=== PATIENT | female | born 1990 | race Caucasian/White ===

== ENCOUNTER 2017-09-04 10:40 | Inpatient (IN) | payer OTHER ==
[2017-09-04] MEDS ORDERED: Nalbuphine 20 MG/1 ML Amp IVPUSH PRN (20:12)
[2017-09-04] MEDS ORDERED: Sodium Chloride 0.9% 10 ML Syringe FLUSH PRN (20:12)
[2017-09-04] MEDS ORDERED: Ampicillin 2 GM in Sodium Chloride 0.9% 100 ML IV ONE (20:12)
[2017-09-04] MEDS: Misoprostol 25 MCG (1/4 of 100 MCG) Tab VAG SCH (21:01)
[2017-09-04] MEDS: Lactated Ringers 1,000 ML IV SCH (21:15)
[2017-09-05] MEDS: Misoprostol 25 MCG (1/4 of 100 MCG) Tab VAG SCH ×2 (00:18→02:50)
[2017-09-05] MEDS: Ampicillin 1 GM in Sodium Chloride 0.9% 100 ML IV SCH ×3 (01:08→08:44)
[2017-09-05] MEDS ORDERED: Oxytocin/Lactated Ringers 10 UNIT/1,000 ML BAG IV ONE (02:12)
[2017-09-05] MEDS: Lactated Ringers 1,000 ML IV SCH ×3 (02:58→06:32)
[2017-09-05] MEDS ORDERED: diphenhydrAMINE 50 MG/ML SDV IVPUSH PRN (04:34)
[2017-09-05] MEDS ORDERED: ePHEDrine 50 MG/ML SDV IVPUSH PRN (04:34)
[2017-09-05] MEDS ORDERED: fentaNYL 100 MCG/2 ML SDV EPIDUR PRN (04:34)
[2017-09-05] MEDS ORDERED: Ondansetron 4 MG/2 ML SDV IVPUSH PRN (04:34)
[2017-09-05] MEDS ORDERED: Bupivacaine/fentaNYL/NS 100 ML Bag EPIDUR SCH (04:45)
--- NOTE | 2017-09-05 05:30 | PCM.PREANE ---
Preanesthetic Assessment - Anesthesia/Transfusion/Family Hx Anesthesia History: No Prior Anesthesia Family History of Anesthesia Reaction: No Transfusion History: No Prior Transfusion(s) - Review of Systems General: No Symptoms Pulmonary: No Symptoms Cardiovascular: No Symptoms Gastrointestinal: No Symptoms Neurological: No Symptoms Other: Reports: None - Physical Assessment Pulse: 62 O2 Sat by Pulse Oximetry: 99 Respiratory Rate: 16 Blood Pressure: 121/71 Temperature: 36.8 C Height: 1.63 m Weight: 83.461 kg ASA Class: 2 Mental Status: Alert & Oriented x3 Airway Class: Mallampati = 2 Dentition: Reports: Normal Dentition Thyro-Mental Finger Breadths: 3 Mouth Opening Finger Breadths: 3 ROM/Head Extension: Full Lungs: Clear to Auscultation, Normal Respiratory Effort Cardiovascular: Regular Rate, Regular Rhythm - Lab Values: Laboratory Last Values WBC 9.59 K/mm3 (3.98-10.04) 09/04/17 21:00 RBC 3.97 M/mm3 (3.98-5.22) L 09/04/17 21:00 Hgb 12.6 gm/L (11.2-15.7) 09/04/17 21:00 Hct 35.6 % (34.1-44.9) 09/04/17 21:00 MCV 89.7 fl (79.4-94.8) 09/04/17 21:00 MCH 31.7 pg (25.6-32.2) 09/04/17 21:00 MCHC 35.4 g/dl (32.2-35.5) 09/04/17 21:00 RDW Std Deviation 40.8 fL (36.4-46.3) 09/04/17 21:00 Plt Count 291 K/mm3 (182-369) 09/04/17 21:00 MPV 11.0 fl (9.4-12.3) 09/04/17 21:00 Blood Type B POSITIVE 09/04/17 21:00 Gel Antibody Screen Negative 09/04/17 21:00 - Allergies Allergies/Adverse Reactions: Allergies Allergy/AdvReac Type Severity Reaction Status Date / Time No Known Allergies Allergy Verified 09/04/17 20:27 - Acknowledgements Anesthesia Type Planned: Epidural Pt an Appropriate Candidate for the Planned Anesthesia: Yes Alternatives and Risks of Anesthesia Discussed w Pt/Guardian: Yes Pt/Guardian Understands and Agrees with Anesthesia Plan: Yes PreAnesthesia Questionnaire - Past Health History Medical/Surgical History: Denies 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: - SUBSTANCE USE Smoking Status *Q: Never Smoker Tobacco Use Within Last Twelve Months: No Second Hand Smoke Exposure: No Recreational Drug Use History: No - CURRENT (IN HOUSE) MEDS Current Meds: Current Medications Diphenhydramine HCl (Benadryl) 25 mg IVPUSH Q6H PRN PRN Reason: Pruritis Ephedrine Sulfate (Ephedrine Sulfate) 5 mg IVPUSH ASDIRECTED PRN PRN Reason: Hypotension Fentanyl (Sublimaze) 100 mcg EPIDUR ONETIME PRN PRN Reason: Pain Last Admin: 09/05/17 05:08 Dose: 100 mcg Fentanyl/Bupivacaine HCl (Fentanyl/Bupivacaine/Ns 2 Mcg-0.125% 100 Ml) 100 ml EPIDUR ASDIRECTED SONA Last Admin: 09/05/17 05:09 Dose: 100 ml Ampicillin Sodium 1 gm/ Sodium (Chloride) 100 mls @ 200 mls/hr IV Q4H SONA Last Admin: 09/05/17 01:08 Dose: 200 mls/hr Lactated Ringer's (Ringers, Lactated) 1,000 mls @ 100 mls/hr IV ASDIRECTED SONA Last Admin: 09/05/17 02:58 Dose: 100 mls/hr Oxytocin 10 unit/ Lactated (Ringer's) 1,001 mls @ 12.01 mls/hr IV TITRATE SONA; 2 MUNITS/MIN PRN Reason: Protocol Oxytocin 10 unit/ Lactated (Ringer's) 1,001 mls @ 500 mls/hr IV .ONETIME SONA PRN Reason: Protocol Nalbuphine HCl (Nubain) 10 mg IVPUSH Q2H PRN PRN Reason: Pain (moderate 4-6) Ondansetron HCl (Zofran) 4 mg IVPUSH ONETIME PRN PRN Reason: Nausea/Vomiting Sodium Chloride (Saline Flush) 10 ml FLUSH ASDIRECTED PRN PRN Reason: Keep Vein Open Discontinued Medications Ampicillin Sodium 2 gm/ Sodium (Chloride) 100 mls @ 200 mls/hr IV ONETIME ONE Stop: 09/04/17 20:41 Last Admin: 09/04/17 21:01 Dose: 200 mls/hr Oxytocin/Lactated Ringer's (Pitocin In Lr 10 Units/1,000 Ml) Confirm Administered Dose 10 unit in 1,000 mls @ as directed IV .STK-MED ONE Stop: 09/05/17 02:13 Last Admin: 09/05/17 02:50 Dose: Not Given Misoprostol (Cytotec) 25 mcg VAG Q3HR SONA Stop: 09/05/17 03:01 Last Admin: 09/05/17 02:50 Dose: 25 mcg
--- NOTE | 2017-09-05 07:48 | PCM.LDHP ---
L&D History of Present Illness - General Date of Service: 09/05/17 Admit Problem/Dx: Patient Status Order with Admit Dx/Problem 09/04/17 20:10 Patient Status [ADT] Routine Admission Diagnosis/Problem Admission Diagnosis/Problem Source of Information: Patient History Limitations: Reports: No Limitations - History of Present Illness Introduction:: 27 y/o FCO 08/28/2017 EGA 41w1d mili. GBS positive, Ampicillin started upon arrival to L&D. presented to labor and delivery on Tuesday evening and at approximately 2100 hrs. the first dose of Cytotec 25 g intravaginal followed by subsequent dose 2 additional doses 1 at 0000 hours approximately and the other at 0300 hrs. approximately. Patient having regular contractions and Pitocin not started. Last menstrual period FCO 08/28/17 and first ultrasound on 02/15/17 at 12 weeks and 2 days FCO of 08/28/17 as well. Blood type B-positive antibody screen negative initial hemoglobin and hematocrit on 02/16/1712.7/37.4 platelets 244,000. Pap smear negative rubella titer equivocal (needs measles mumps rubella vaccine ), VDRL nonreactive, hepatitis B surface antigen negative, HIV negative, GC chlamydia negative. On 05/20/2017 hemoglobin hematocrit 12.0/34.7 platelets 239,000. Diabetes screen 109. Group B strep positive on 08/01/17. Patient received TDAP 32 weeks gestation. 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) Social & Family History - Family History Family Medical History: Noncontributory - Tobacco Use Smoking Status *Q: Never Smoker Second Hand Smoke Exposure: No - Caffeine Use Caffeine Use: Reports: None - Recreational Drug Use Recreational Drug Use: No H&P Review of Systems - Review of Systems: Review Of Systems: See Below General: Reports: No Symptoms HEENT: Reports: No Symptoms Pulmonary: Reports: No Symptoms Cardiovascular: Reports: No Symptoms Gastrointestinal: Reports: No Symptoms Genitourinary: Reports: No Symptoms Musculoskeletal: Reports: No Symptoms Skin: Reports: No Symptoms Psychiatric: Reports: No Symptoms Neurological: Reports: No Symptoms Hematologic/Lymphatic: Reports: No Symptoms Immunologic: Reports: No Symptoms L&D Exam - Exam Exam: See Below - Vital Signs Vital Signs: Last Vital Signs Temp 98.2 F 09/05/17 05:30 Pulse 62 09/05/17 05:30 Resp 16 09/05/17 05:30 BP 121/71 09/05/17 05:30 Pulse Ox 99 09/05/17 05:30 Weight: 184 lb - OB Specific Fundal Height In cm: 39 Contraction Duration (sec): 60 Contraction Frequency (min): 2-4 Contraction Intensity: Moderate to Strong Movement: Active Heart Tones: Present Heart Tones per Min: 124 Heart Rate (FHR) Variability: Moderate (6-25 bmp) Presentation: Vertex - Del Cid Score Del Cid Score Cervix Position: Posterior Del Cid Score Consistency: Soft Del Cid Score Effacement: 0-30% Del Cid Score Dilation: Closed Del Cid Score Infant's Station: -2 Del Cid Score Total: 3 - Exam General: Alert, Oriented HEENT: Conjunctiva Clear, Mucosa Moist & [place] Neck: Supple, Trachea Midline Lungs: Clear to Auscultation, Normal Respiratory Effort Cardiovascular: Regular Rate, Regular Rhythm GI/Abdominal Exam: Normal Bowel Sounds, Soft, Non-Tender Genitourinary: Normal external exam, Normal bimanual exam, Normal speculum exam Extremities: Normal Inspection, Normal Range of Motion, Non-Tender, No Pedal Edema, Normal Capillary Refill Skin: Warm, Dry, Intact Neurological: Reflexes Equal Bilateral Psychiatric: Alert, Normal Affect, Normal Mood - Patient Data Lab Results Last 24 hrs: Laboratory Results - last 24 hr 09/04/17 09/04/17 Range/Units 21:00 21:00 WBC 9.59 (3.98-10.04) K/mm3 RBC 3.97 L (3.98-5.22) M/mm3 Hgb 12.6 (11.2-15.7) gm/L Hct 35.6 (34.1-44.9) % MCV 89.7 (79.4-94.8) fl MCH 31.7 (25.6-32.2) pg MCHC 35.4 (32.2-35.5) g/dl RDW Std Deviation 40.8 (36.4-46.3) fL Plt Count 291 (182-369) K/mm3 MPV 11.0 (9.4-12.3) fl Blood Type B POSITIVE Gel Antibody Screen Negative Result Diagrams: 09/04/17 21:00 - Problem List (1) 41 weeks gestation of SNOMED Code(s): 64174098 ICD Code: Z3A.41 - 41 WEEKS GESTATION OF Status: Acute Current Visit: Yes (2) GBS (group B Streptococcus carrier), +RV culture, currently SNOMED Code(s): 7006099770084, 2458757107069 ICD Code: O99.820 - STREPTOCOCCUS B CARRIER STATE COMPLICATING Status: Acute Current Visit: Yes Problem List Initiated/Reviewed/Updated: No Orders Last 24hrs: Active Orders 24 hr Category Date Time Status Patient Status [ADT] Routine ADT 09/04/17 20:10 Active Activity as Tolerated [RC] PFP Care 09/04/17 20:12 Active Communication Order [RC] ASDIRECTED Care 09/04/17 20:12 Active Notify Provider [RC] ASDIRECTED Care 09/05/17 04:34 Active Notify Provider [RC] PFP Care 09/04/17 20:12 Active Notify Provider [RC] PRN Care 09/04/17 20:12 Active Peripheral IV Care [RC] . DIRECTED Care 09/04/17 20:15 Active Vital Signs [RC] PER UNIT ROUTINE Care 09/04/17 20:12 Active Ampicillin 1 gm Med 09/05/17 01:00 Active Sodium Chloride 0.9% [Normal Saline] 100 ml IV Q4H Bupivacaine/fentaNYL/NS [fentaNYL/Bupivacaine/NS 2 MCG- Med 09/05/17 04:45 Active 0.125% 100 ML] 100 ml EPIDUR ASDIRECTED Lactated Ringers [Ringers, Lactated] 1,000 ml Med 09/04/17 20:15 Active IV ASDIRECTED Nalbuphine [Nubain] Med 09/04/17 20:12 Active 10 mg IVPUSH Q2H PRN Ondansetron [Zofran] Med 09/05/17 04:34 Active 4 mg IVPUSH ONETIME PRN Oxytocin [Pitocin] 10 unit Med 09/05/17 01:45 Active Lactated Ringers [Ringers, Lactated] 1,000 ml IV .ONETIME Oxytocin [Pitocin] 10 unit Med 09/05/17 06:00 Active Lactated Ringers [Ringers, Lactated] 1,000 ml IV TITRATE Sodium Chloride 0.9% [Saline Flush] Med 09/04/17 20:12 Active 10 ml FLUSH ASDIRECTED PRN diphenhydrAMINE [Benadryl] Med 09/05/17 04:34 Active 25 mg IVPUSH Q6H PRN ePHEDrine [ePHEDrine Sulfate] Med 09/05/17 04:34 Active 5 mg IVPUSH ASDIRECTED PRN fentaNYL [Sublimaze] Med 09/05/17 04:34 Active 100 mcg EPIDUR ONETIME PRN Electronic Heart Tones Ext w TOCO [WOMSER] Oth 09/04/17 20:12 Ordered Routine Electronic Heart Tones Internal [WOMSER] Per Unit Oth 09/04/17 20:12 Ordered Routine Peripheral IV Insertion Adult [OM.PC] Routine Oth 09/04/17 20:12 Ordered Resuscitation Status Routine Resus Stat 09/04/17 20:12 Ordered Medication Orders Diphenhydramine HCl (Benadryl) 25 mg IVPUSH Q6H PRN PRN Reason: Pruritis Ephedrine Sulfate (Ephedrine Sulfate) 5 mg IVPUSH ASDIRECTED PRN PRN Reason: Hypotension Fentanyl (Sublimaze) 100 mcg EPIDUR ONETIME PRN PRN Reason: Pain Last Admin: 09/05/17 05:08 Dose: 100 mcg Fentanyl/Bupivacaine HCl (Fentanyl/Bupivacaine/Ns 2 Mcg-0.125% 100 Ml) 100 ml EPIDUR ASDIRECTED [facility] Last Admin: 09/05/17 05:09 Dose: 100 ml Ampicillin Sodium 1 gm/ Sodium (Chloride) 100 mls @ 200 mls/hr IV Q4H [facility] Last Admin: 09/05/17 05:40 Dose: 200 mls/hr Infusion: 09/05/17 01:38 Dose: 200 mls/hr Admin: 09/05/17 01:08 Dose: 200 mls/hr Lactated Ringer's (Ringers, Lactated) 1,000 mls @ 100 mls/hr IV ASDIRECTED SONA Last Admin: 09/05/17 06:32 Dose: 100 mls/hr Infusion: 09/05/17 06:32 Dose: 100 mls/hr Admin: 09/05/17 05:41 Dose: 100 mls/hr Infusion: 09/05/17 05:41 Dose: 100 mls/hr Admin: 09/05/17 02:58 Dose: 100 mls/hr Infusion: 09/05/17 02:58 Dose: 100 mls/hr Admin: 09/04/17 21:15 Dose: 100 mls/hr Oxytocin 10 unit/ Lactated (Ringer's) 1,001 mls @ 12.01 mls/hr IV TITRATE SONA; 2 MUNITS/MIN PRN Reason: Protocol Oxytocin 10 unit/ Lactated (Ringer's) 1,001 mls @ 500 mls/hr IV .ONETIME SONA PRN Reason: Protocol Nalbuphine HCl (Nubain) 10 mg IVPUSH Q2H PRN PRN Reason: Pain (moderate 4-6) Ondansetron HCl (Zofran) 4 mg IVPUSH ONETIME PRN PRN Reason: Nausea/Vomiting Sodium Chloride (Saline Flush) 10 ml FLUSH ASDIRECTED PRN PRN Reason: Keep Vein Open Assessment/Plan Comment:: Plan: Induction of Labor and delivery.
[2017-09-05] MEDS ORDERED: Benzocaine/Menthol 20%-0.5% Spray 56 GM Canister TOP PRN (10:46)
[2017-09-05] MEDS ORDERED: Docusate Sodium 100 MG Cap PO PRN (10:46)
[2017-09-05] MEDS ORDERED: Acetaminophen/oxyCODONE 325-5 MG Tab PO PRN (10:46)
[2017-09-05] MEDS ORDERED: Lanolin 100% Cream 7 GM Tube TOP PRN (10:46)
[2017-09-05] MEDS ORDERED: Acetaminophen 325 MG Tab PO PRN (10:46)
[2017-09-05] MEDS ORDERED: Witch Hazel Medicated Pads 100/Jar TOP PRN (10:46)
[2017-09-05] MEDS ORDERED: Simethicone 80 MG Tab.Chew PO PRN (10:46)
--- NOTE | 2017-09-05 10:50 | PCM.DEL ---
L & D Note - General Info Date of Service: 09/05/17 Mother's Due Date: 08/28/17 - Delivery Note Labor: Spontaneous Cervical Ripening Method: Misoprostil Delivery Outcome: Livebirth (Male liveborn 1023 hrs. on Tuesday09/05/17 DILMA vacuum extraction assisted in the green time less than 1 minute 2 midline episiotomy Apgars 8/9 vacuum extraction required due to decelerations and nuchal cord 1.) Delivery Method: Spontaneous Vaginal Delivery-Single Delivery Mode: Vacuum Extraction Presentation: Left Occiput Anterior (DILMA) Nuchal Cord: Present (Tight 1 reduced over the head tightness necessitated vacuum extraction.) Prep: Povidone-Iodine (Betadine Anesthesia Type: Epidural Amniotic Fluid Description: Clear Episiotomy Type: Midline (Midline episiotomy and no lacerations and no extensions) Laceration: None Suture type: Other (Monocryl 30 2) Suture size: 3-0 Placenta: Intact, Spontaneous Cord: 3 Vessels Estimated Blood Loss: 500 Resuscitation Needed: No [place]: Suctioned, Bulb Syringe, Stimulated, Warmed, [place] Used, Warmer Used Provider: Vignesh Herron Score 1 min: 8 Score 5 min: 9 - Patient Data Vitals - Most Recent: Last Vital Signs Temp 98.2 F 09/05/17 05:30 Pulse 62 09/05/17 05:30 Resp 16 09/05/17 05:30 BP 121/71 09/05/17 05:30 Pulse Ox 99 09/05/17 05:30 Weight - Most Recent: 184 lb Lab Results Last 24 Hours: Laboratory Results - last 24 hr 09/04/17 09/04/17 Range/Units 21:00 21:00 WBC 9.59 (3.98-10.04) K/mm3 RBC 3.97 L (3.98-5.22) M/mm3 Hgb 12.6 (11.2-15.7) gm/L Hct 35.6 (34.1-44.9) % MCV 89.7 (79.4-94.8) fl MCH 31.7 (25.6-32.2) pg MCHC 35.4 (32.2-35.5) g/dl RDW Std Deviation 40.8 (36.4-46.3) fL Plt Count 291 (182-369) K/mm3 MPV 11.0 (9.4-12.3) fl Blood Type B POSITIVE Gel Antibody Screen Negative Med Orders - Current: Current Medications Diphenhydramine HCl (Benadryl) 25 mg IVPUSH Q6H PRN PRN Reason: Pruritis Ephedrine Sulfate (Ephedrine Sulfate) 5 mg IVPUSH ASDIRECTED PRN PRN Reason: Hypotension Fentanyl (Sublimaze) 100 mcg EPIDUR ONETIME PRN PRN Reason: Pain Last Admin: 09/05/17 05:08 Dose: 100 mcg Fentanyl/Bupivacaine HCl (Fentanyl/Bupivacaine/Ns 2 Mcg-0.125% 100 Ml) 100 ml EPIDUR ASDIRECTED SONA Last Admin: 09/05/17 05:09 Dose: 100 ml Ampicillin Sodium 1 gm/ Sodium (Chloride) 100 mls @ 200 mls/hr IV Q4H SONA Last Admin: 09/05/17 08:44 Dose: 200 mls/hr Lactated Ringer's (Ringers, Lactated) 1,000 mls @ 100 mls/hr IV ASDIRECTED SONA Last Admin: 09/05/17 06:32 Dose: 100 mls/hr Oxytocin 10 unit/ Lactated (Ringer's) 1,001 mls @ 12.01 mls/hr IV TITRATE SONA; 2 MUNITS/MIN PRN Reason: Protocol Oxytocin 10 unit/ Lactated (Ringer's) 1,001 mls @ 500 mls/hr IV .ONETIME SONA PRN Reason: Protocol Nalbuphine HCl (Nubain) 10 mg IVPUSH Q2H PRN PRN Reason: Pain (moderate 4-6) Ondansetron HCl (Zofran) 4 mg IVPUSH ONETIME PRN PRN Reason: Nausea/Vomiting Sodium Chloride (Saline Flush) 10 ml FLUSH ASDIRECTED PRN PRN Reason: Keep Vein Open Discontinued Medications Ephedrine Sulfate (Ephedrine Sulfate) 50 mg .ROUTE .STK-MED ONE Stop: 09/05/17 22:23 Ampicillin Sodium 2 gm/ Sodium (Chloride) 100 mls @ 200 mls/hr IV ONETIME ONE Stop: 09/04/17 20:41 Last Admin: 09/04/17 21:01 Dose: 200 mls/hr Oxytocin/Lactated Ringer's (Pitocin In Lr 10 Units/1,000 Ml) Confirm Administered Dose 10 unit in 1,000 mls @ as directed IV .STK-MED ONE Stop: 09/05/17 02:13 Last Admin: 09/05/17 02:50 Dose: Not Given Misoprostol (Cytotec) 25 mcg VAG Q3HR SONA Stop: 09/05/17 03:01 Last Admin: 09/05/17 02:50 Dose: 25 mcg - Problem List & Annotations (1) 41 weeks gestation of SNOMED Code(s): 78076542 Code(s): Z3A.41 - 41 WEEKS GESTATION OF Status: Acute Current Visit: Yes (2) GBS (group B Streptococcus carrier), +RV culture, currently SNOMED Code(s): 6199038676436, 8413709568718 Code(s): O99.820 - STREPTOCOCCUS B CARRIER STATE COMPLICATING Status: Acute Current Visit: Yes (3) heart rate decelerations affecting management of mother SNOMED Code(s): 74364295 Code(s): O36.8390 - MATERN CARE FOR ABNLT FETL HRT RATE OR RHYM, UNSP TRI, UNSP Status: Acute Current Visit: Yes (4) Nuchal cord with compression, delivered, current hospitalization SNOMED Code(s): 610258527 Code(s): O69.1XX0 - LABOR AND DELIVERY COMP BY CORD AROUND NECK, W COMPRSN, UNSP Status: Acute Current Visit: Yes - Problem List Review Problem List Initiated/Reviewed/Updated: No - My Orders Last 24 Hours: My Active Orders 09/04/17 20:10 Patient Status [ADT] Routine 09/04/17 20:12 Activity as Tolerated [RC] PFP Communication Order [RC] ASDIRECTED Notify Provider [RC] PFP Notify Provider [RC] PRN Vital Signs [RC] PER UNIT ROUTINE Nalbuphine [Nubain] 10 mg IVPUSH Q2H PRN Sodium Chloride 0.9% [Saline Flush] 10 ml FLUSH ASDIRECTED PRN Electronic Heart Tones Ext w TOCO [WOMSER] Routine Electronic Heart Tones Internal [WOMSER] Per Unit Routine Peripheral IV Insertion Adult [OM.PC] Routine Resuscitation Status Routine 09/04/17 20:15 Peripheral IV Care [RC] . DIRECTED Lactated Ringers [Ringers, Lactated] 1,000 ml IV ASDIRECTED 09/05/17 01:00 Ampicillin 1 gm Sodium Chloride 0.9% [Normal Saline] 100 ml IV Q4H 09/05/17 01:45 Oxytocin [Pitocin] 10 unit Lactated Ringers [Ringers, Lactated] 1,000 ml IV .ONETIME 09/05/17 06:00 Oxytocin [Pitocin] 10 unit Lactated Ringers [Ringers, Lactated] 1,000 ml IV TITRATE 09/05/17 10:40 Patient Status Manage Transfer [TRANSFER] Routine - Plan Plan:: Plan: Induction of Labor and delivery.
[2017-09-05] MEDS: Ibuprofen 600 MG Tab PO PRN ×2 (13:20→20:44)
[2017-09-05] MEDS ORDERED: Measles, Mumps & Rubella Vaccine 0.5 ML SDV SUBCUT ONE (16:51)
[2017-09-05] MEDS ORDERED: ePHEDrine 50 MG/ML SDV ONE (22:22)
[2017-09-06] MEDS: Ibuprofen 600 MG Tab PO PRN (08:37)
--- NOTE | 2017-09-06 16:37 | PCM.SN ---
- Free Text/Narrative Note: PPD#1 Afebrile, breast feeding, uterus involuting normally, no heavy vaginal bleeding. No leg cramping. Doing well.
--- NOTE | 2017-09-06 16:38 | PCM48HPAN ---
Post Anesthesia Note - EVALUATION WITHIN 48HRS OF ANESTHETIC Vital Signs in Normal Range: Yes Patient Participated in Evaluation: Yes Respiratory Function Stable: Yes Airway Patent: Yes Cardiovascular Function Stable: Yes Hydration Status Stable: Yes Pain Control Satisfactory: Yes Nausea and Vomiting Control Satisfactory: Yes Mental Status Recovered: Yes
--- NOTE | 2017-09-06 16:42 | PCM.DCSUM1 ---
Discharge Summary - Hospital Course Free Text/Narrative:: [facility], [place], operated by [facility] LIVE L/D Delivery Note Patient Name: NIKOS MISTRY Date of : 86 Patient Status: Inpatient Attending Provider: Vignesh Herron Date: 09/05/17 10:43 Initialization Date: 09/05/17 10:43 L & D Note - General Info Date of Service: 09/05/17 Mother's Due Date: 08/28/17 - Delivery Note Labor: Spontaneous Cervical Ripening Method: Misoprostil Delivery Outcome: Livebirth (Male liveborn 1023 hrs. on Tuesday09/05/17 DILMA vacuum extraction assisted in the green time less than 1 minute 2 midline episiotomy Apgars 8/9 vacuum extraction required due to decelerations and nuchal cord 1.) Delivery Method: Spontaneous Vaginal Delivery-Single Infant Delivery Mode: Vacuum Extraction Presentation: Left Occiput Anterior (DILMA) Nuchal Cord: Present (Tight 1 reduced over the head tightness necessitated vacuum extraction.) Prep: Povidone-Iodine (Betadine Anesthesia Type: Epidural Amniotic Fluid Description: Clear Episiotomy Type: Midline (Midline episiotomy and no lacerations and no extensions) Laceration: None Suture type: Other (Monocryl 30 2) Suture size: 3-0 Placenta: Intact, Spontaneous Cord: 3 Vessels Estimated Blood Loss: 500 Resuscitation Needed: No [place]: Suctioned, Bulb Syringe, Stimulated, Warmed, [place] Used, Warmer Used Provider: Vignesh Herron Score 1 min: 8 Score 5 min: 9 - Patient Data Vitals - Most Recent: Last Vital Signs Temp 98.2 F 09/05/17 05:30 Pulse 62 09/05/17 05:30 Resp 16 09/05/17 05:30 BP 121/71 09/05/17 05:30 Pulse Ox 99 09/05/17 05:30 Weight - Most Recent: 184 lb Lab Results Last 24 Hours: Laboratory Results - last 24 hr 09/04/17 09/04/17 Range/Units 21:00 21:00 WBC 9.59 (3.98-10.04) K/mm3 RBC 3.97 L (3.98-5.22) M/mm3 Hgb 12.6 (11.2-15.7) gm/L Hct 35.6 (34.1-44.9) % MCV 89.7 (79.4-94.8) fl MCH 31.7 (25.6-32.2) pg MCHC 35.4 (32.2-35.5) g/dl RDW Std Deviation 40.8 (36.4-46.3) fL Plt Count 291 (182-369) K/mm3 MPV 11.0 (9.4-12.3) fl Blood Type B POSITIVE Gel Antibody Screen Negative Med Orders - Current: Current Medications Diphenhydramine HCl (Benadryl) 25 mg IVPUSH Q6H PRN PRN Reason: Pruritis Ephedrine Sulfate (Ephedrine Sulfate) 5 mg IVPUSH ASDIRECTED PRN PRN Reason: Hypotension Fentanyl (Sublimaze) 100 mcg EPIDUR ONETIME PRN PRN Reason: Pain Last Admin: 09/05/17 05:08 Dose: 100 mcg Fentanyl/Bupivacaine HCl (Fentanyl/Bupivacaine/Ns 2 Mcg-0.125% 100 Ml) 100 ml EPIDUR ASDIRECTED SONA Last Admin: 09/05/17 05:09 Dose: 100 ml Ampicillin Sodium 1 gm/ Sodium (Chloride) 100 mls @ 200 mls/hr IV Q4H SONA Last Admin: 09/05/17 08:44 Dose: 200 mls/hr Lactated Ringer's (Ringers, Lactated) 1,000 mls @ 100 mls/hr IV ASDIRECTED SONA Last Admin: 09/05/17 06:32 Dose: 100 mls/hr Oxytocin 10 unit/ Lactated (Ringer's) 1,001 mls @ 12.01 mls/hr IV TITRATE SONA; 2 MUNITS/MIN PRN Reason: Protocol Oxytocin 10 unit/ Lactated (Ringer's) 1,001 mls @ 500 mls/hr IV .ONETIME SONA PRN Reason: Protocol Nalbuphine HCl (Nubain) 10 mg IVPUSH Q2H PRN PRN Reason: Pain (moderate 4-6) Ondansetron HCl (Zofran) 4 mg IVPUSH ONETIME PRN PRN Reason: Nausea/Vomiting Sodium Chloride (Saline Flush) 10 ml FLUSH ASDIRECTED PRN PRN Reason: Keep Vein Open Discontinued Medications Ephedrine Sulfate (Ephedrine Sulfate) 50 mg .ROUTE .STK-MED ONE Stop: 09/05/17 22:23 Ampicillin Sodium 2 gm/ Sodium (Chloride) 100 mls @ 200 mls/hr IV ONETIME ONE Stop: 09/04/17 20:41 Last Admin: 09/04/17 21:01 Dose: 200 mls/hr Oxytocin/Lactated Ringer's (Pitocin In Lr 10 Units/1,000 Ml) Confirm Administered Dose 10 unit in 1,000 mls @ as directed IV .STK-MED ONE Stop: 09/05/17 02:13 Last Admin: 09/05/17 02:50 Dose: Not Given Misoprostol (Cytotec) 25 mcg VAG Q3HR SONA Stop: 09/05/17 03:01 Last Admin: 09/05/17 02:50 Dose: 25 mcg - Problem List & Annotations (1) 41 weeks gestation of SNOMED Code(s): 77464100 Code(s): Z3A.41 - 41 WEEKS GESTATION OF Status: Acute Current Visit: Yes (2) GBS (group B Streptococcus carrier), +RV culture, currently SNOMED Code(s): 6172434628699, 7910624379376 Code(s): O99.820 - STREPTOCOCCUS B CARRIER STATE COMPLICATING Status: Acute Current Visit: Yes (3) heart rate decelerations affecting management of mother SNOMED Code(s): 38275083 Code(s): O36.8390 - MATERN CARE FOR ABNLT FETL HRT RATE OR RHYM, UNSP TRI, UNSP Status: Acute Current Visit: Yes (4) Nuchal cord with compression, delivered, current hospitalization SNOMED Code(s): 263224285 Code(s): O69.1XX0 - LABOR AND DELIVERY COMP BY CORD AROUND NECK, W COMPRSN, UNSP Status: Acute Current Visit: Yes - Problem List Review Problem List Initiated/Reviewed/Updated: No - My Orders Last 24 Hours: My Active Orders 09/04/17 20:10 Patient Status [ADT] Routine 09/04/17 20:12 Activity as Tolerated [RC] PFP Communication Order [RC] ASDIRECTED Notify Provider [RC] PFP Notify Provider [RC] PRN Vital Signs [RC] PER UNIT ROUTINE Nalbuphine [Nubain] 10 mg IVPUSH Q2H PRN Sodium Chloride 0.9% [Saline Flush] 10 ml FLUSH ASDIRECTED PRN Electronic Heart Tones Ext w TOCO [WOMSER] Routine Electronic Heart Tones Internal [WOMSER] Per Unit Routine Peripheral IV Insertion Adult [OM.PC] Routine Resuscitation Status Routine 09/04/17 20:15 Peripheral IV Care [RC] . DIRECTED Lactated Ringers [Ringers, Lactated] 1,000 ml IV ASDIRECTED 09/05/17 01:00 Ampicillin 1 gm Sodium Chloride 0.9% [Normal Saline] 100 ml IV Q4H 09/05/17 01:45 Oxytocin [Pitocin] 10 unit Lactated Ringers [Ringers, Lactated] 1,000 ml IV .ONETIME 09/05/17 06:00 Oxytocin [Pitocin] 10 unit Lactated Ringers [Ringers, Lactated] 1,000 ml IV TITRATE 09/05/17 10:40 Patient Status Manage Transfer [TRANSFER] Routine - Plan Plan:: Plan: Induction of Labor and delivery. HPI Initial Comments: [facility], [place], operated by [facility] LIVE L/D Delivery Note Patient Name: NIKOS MISTRY Date of : 86 Patient Status: Inpatient Attending Provider: Vignesh Herron Date: 09/05/17 10:43 Initialization Date: 09/05/17 10:43 L & D Note - General Info Date of Service: 09/05/17 Mother's Due Date: 08/28/17 - Delivery Note Labor: Spontaneous Cervical Ripening Method: Misoprostil Delivery Outcome: Livebirth (Male liveborn 1023 hrs. on Tuesday09/05/17 DILMA vacuum extraction assisted in the green time less than 1 minute 2 midline episiotomy Apgars 8/9 vacuum extraction required due to decelerations and nuchal cord 1.) Infant Delivery Method: Spontaneous Vaginal Delivery-Single Delivery Mode: Vacuum Extraction Presentation: Left Occiput Anterior (DILMA) Nuchal Cord: Present (Tight 1 reduced over the head tightness necessitated vacuum extraction.) Prep: Povidone-Iodine (Betadine Anesthesia Type: Epidural Amniotic Fluid Description: Clear Episiotomy Type: Midline (Midline episiotomy and no lacerations and no extensions) Laceration: None Suture type: Other (Monocryl 30 2) Suture size: 3-0 Placenta: Intact, Spontaneous Cord: 3 Vessels Estimated Blood Loss: 500 Resuscitation Needed: No : Suctioned, Bulb Syringe, Stimulated, Warmed, [place] Used, Warmer Used Provider: Vignesh Herron Score 1 min: 8 Score 5 min: 9 - Patient Data Vitals - Most Recent: Last Vital Signs Temp 98.2 F 09/05/17 05:30 Pulse 62 09/05/17 05:30 Resp 16 09/05/17 05:30 BP 121/71 09/05/17 05:30 Pulse Ox 99 09/05/17 05:30 Weight - Most Recent: 184 lb Lab Results Last 24 Hours: Laboratory Results - last 24 hr 09/04/17 09/04/17 Range/Units 21:00 21:00 WBC 9.59 (3.98-10.04) K/mm3 RBC 3.97 L (3.98-5.22) M/mm3 Hgb 12.6 (11.2-15.7) gm/L Hct 35.6 (34.1-44.9) % MCV 89.7 (79.4-94.8) fl MCH 31.7 (25.6-32.2) pg MCHC 35.4 (32.2-35.5) g/dl RDW Std Deviation 40.8 (36.4-46.3) fL Plt Count 291 (182-369) K/mm3 MPV 11.0 (9.4-12.3) fl Blood Type B POSITIVE Gel Antibody Screen Negative Med Orders - Current: Current Medications Diphenhydramine HCl (Benadryl) 25 mg IVPUSH Q6H PRN PRN Reason: Pruritis Ephedrine Sulfate (Ephedrine Sulfate) 5 mg IVPUSH ASDIRECTED PRN PRN Reason: Hypotension Fentanyl (Sublimaze) 100 mcg EPIDUR ONETIME PRN PRN Reason: Pain Last Admin: 09/05/17 05:08 Dose: 100 mcg Fentanyl/Bupivacaine HCl (Fentanyl/Bupivacaine/Ns 2 Mcg-0.125% 100 Ml) 100 ml EPIDUR ASDIRECTED SONA Last Admin: 09/05/17 05:09 Dose: 100 ml Ampicillin Sodium 1 gm/ Sodium (Chloride) 100 mls @ 200 mls/hr IV Q4H SONA Last Admin: 09/05/17 08:44 Dose: 200 mls/hr Lactated Ringer's (Ringers, Lactated) 1,000 mls @ 100 mls/hr IV ASDIRECTED SONA Last Admin: 09/05/17 06:32 Dose: 100 mls/hr Oxytocin 10 unit/ Lactated (Ringer's) 1,001 mls @ 12.01 mls/hr IV TITRATE SONA; 2 MUNITS/MIN PRN Reason: Protocol Oxytocin 10 unit/ Lactated (Ringer's) 1,001 mls @ 500 mls/hr IV .ONETIME SONA PRN Reason: Protocol Nalbuphine HCl (Nubain) 10 mg IVPUSH Q2H PRN PRN Reason: Pain (moderate 4-6) Ondansetron HCl (Zofran) 4 mg IVPUSH ONETIME PRN PRN Reason: Nausea/Vomiting Sodium Chloride (Saline Flush) 10 ml FLUSH ASDIRECTED PRN PRN Reason: Keep Vein Open Discontinued Medications Ephedrine Sulfate (Ephedrine Sulfate) 50 mg .ROUTE .STK-MED ONE Stop: 09/05/17 22:23 Ampicillin Sodium 2 gm/ Sodium (Chloride) 100 mls @ 200 mls/hr IV ONETIME ONE Stop: 09/04/17 20:41 Last Admin: 09/04/17 21:01 Dose: 200 mls/hr Oxytocin/Lactated Ringer's (Pitocin In Lr 10 Units/1,000 Ml) Confirm Administered Dose 10 unit in 1,000 mls @ as directed IV .STK-MED ONE Stop: 09/05/17 02:13 Last Admin: 09/05/17 02:50 Dose: Not Given Misoprostol (Cytotec) 25 mcg VAG Q3HR SONA Stop: 09/05/17 03:01 Last Admin: 09/05/17 02:50 Dose: 25 mcg - Problem List & Annotations (1) 41 weeks gestation of SNOMED Code(s): 88810719 Code(s): Z3A.41 - 41 WEEKS GESTATION OF Status: Acute Current Visit: Yes (2) GBS (group B Streptococcus carrier), +RV culture, currently SNOMED Code(s): 8715395682788, 4933894881302 Code(s): O99.820 - STREPTOCOCCUS B CARRIER STATE COMPLICATING Status: Acute Current Visit: Yes (3) heart rate decelerations affecting management of mother SNOMED Code(s): 19625970 Code(s): O36.8390 - MATERN CARE FOR ABNLT FETL HRT RATE OR RHYM, UNSP TRI, UNSP Status: Acute Current Visit: Yes (4) Nuchal cord with compression, delivered, current hospitalization SNOMED Code(s): 270839818 Code(s): O69.1XX0 - LABOR AND DELIVERY COMP BY CORD AROUND NECK, W COMPRSN, UNSP Status: Acute Current Visit: Yes - Problem List Review Problem List Initiated/Reviewed/Updated: No - My Orders Last 24 Hours: My Active Orders 09/04/17 20:10 Patient Status [ADT] Routine 09/04/17 20:12 Activity as Tolerated [RC] PFP Communication Order [RC] ASDIRECTED Notify Provider [RC] PFP Notify Provider [RC] PRN Vital Signs [RC] PER UNIT ROUTINE Nalbuphine [Nubain] 10 mg IVPUSH Q2H PRN Sodium Chloride 0.9% [Saline Flush] 10 ml FLUSH ASDIRECTED PRN Electronic Heart Tones Ext w TOCO [WOMSER] Routine Electronic Heart Tones Internal [WOMSER] Per Unit Routine Peripheral IV Insertion Adult [OM.PC] Routine Resuscitation Status Routine 09/04/17 20:15 Peripheral IV Care [RC] . DIRECTED Lactated Ringers [Ringers, Lactated] 1,000 ml IV ASDIRECTED 09/05/17 01:00 Ampicillin 1 gm Sodium Chloride 0.9% [Normal Saline] 100 ml IV Q4H 09/05/17 01:45 Oxytocin [Pitocin] 10 unit Lactated Ringers [Ringers, Lactated] 1,000 ml IV .ONETIME 09/05/17 06:00 Oxytocin [Pitocin] 10 unit Lactated Ringers [Ringers, Lactated] 1,000 ml IV TITRATE 09/05/17 10:40 Patient Status Manage Transfer [TRANSFER] Routine - Plan Plan:: Plan: Induction of Labor and delivery. Brief History: [facility], [place], operated by [facility] LIVE . L/D Delivery Note. Patient Name: NIKOS MISTRYical Record Number: [id number]. Date of : Patient Status: Inpatient. Attending Provider: Vignesh Herron Number: [id number]. Date: 09/05/17 10:43Initialization Date: 09/05/17 10:43. L & D Note. - General Info. Date of Service: 09/05/17. Mother's Due Date: 08/28/17. - Delivery Note. Labor: Spontaneous. Cervical Ripening Method: Misoprostil. Delivery Outcome: Livebirth (Male liveborn 1023 hrs. on Tuesday DILMA vacuum extraction assisted in the green time less than 1 minute 2 midline episiotomy Apgars 8/9 vacuum extraction required due to decelerations and nuchal cord 1.). Infant Delivery Method: Spontaneous Vaginal Delivery- Single. Delivery Mode: Vacuum Extraction. Presentation: Left Occiput Anterior (DILMA). Nuchal Cord: Present (Tight 1 reduced over the head tightness necessitated vacuum extraction.). Prep: Povidone-Iodine (Betadine. Anesthesia Type: Epidural. Amniotic Fluid Description: Clear. Episiotomy Type : Midline (Midline episiotomy and no lacerations and no extensions). Laceration : None. Suture type: Other (Monocryl 30 2). Suture size: 3-0. Placenta: Intact, Spontaneous. Cord: 3 Vessels. Estimated Blood Loss: 500. Resuscitation Needed: No. [place]: Suctioned, Bulb Syringe, Stimulated, Warmed , [place] Used, Warmer Used. Provider: Vignesh Herron. Score 1 min: 8. Score 5 min: 9. - Patient Data. Vitals - Most Recent: Last Vital Signs. Temp 98.2 F 09/05/17 05:30. Pulse 62 09/05/17 05:30. Resp 16 09/05/17 05:30. BP 121/71 09/05/17 05:30. Pulse Ox 99 09/05/17 05: 30. Weight - Most Recent: 184 lb. Lab Results Last 24 Hours: Laboratory Results - last 24 hr. 09/04/1712Range/Units. 21:0021:00. WBC 9.59 (3.98 -10.04) K/mm3. RBC 3.97 L (3.98-5.22) M/mm3. Hgb 12.6 (11.2-15.7) gm/L. Hct 35.6 (34.1-44.9) %. MCV 89.7 (79.4-94.8) fl. MCH 31.7 (25.6-32.2) pg. MCHC 35.4 (32.2-35.5) g/dl. RDW Std Deviation 40.8 (36.4-46.3) fL. Plt Count 291 (182-369) K/mm3. MPV 11.0 (9.4-12.3) fl. Blood Type B POSITIVE. Gel Antibody Screen Negative. Med Orders - Current: Current Medications. Diphenhydramine HCl (Benadryl) 25 mg IVPUSH Q6H PRN. PRN Reason: Pruritis. Ephedrine Sulfate (Ephedrine Sulfate) 5 mg IVPUSH ASDIRECTED PRN. PRN Reason: Hypotension. Fentanyl (Sublimaze) 100 mcg EPIDUR ONETIME PRN. PRN Reason: Pain. Last Admin: 09/05/17 05:08 Dose: 100 mcg. Fentanyl/Bupivacaine HCl ( Fentanyl/Bupivacaine/Ns 2 Mcg-0.125% 100 Ml) 100 ml EPIDUR ASDIRECTED SONA. Last Admin: 09/05/17 05:09 Dose: 100 ml. Ampicillin Sodium 1 gm/ Sodium ( Chloride) 100 mls @ 200 mls/hr IV Q4H SONA. Last Admin: 09/05/17 08:44 Dose: 200 mls/hr. Lactated Ringer's (Ringers, Lactated) 1,000 mls @ 100 mls/hr IV ASDIRECTED SONA. Last Admin: 09/05/17 06:32 Dose: 100 mls/hr. Oxytocin 10 unit / Lactated (Ringer's) 1,001 mls @ 12.01 mls/hr IV TITRATE SONA; 2 MUNITS/MIN. PRN Reason: Protocol. Oxytocin 10 unit/ Lactated (Ringer's) 1,001 mls @ 500 mls/hr IV .ONETIME SONA. PRN Reason: Protocol. Nalbuphine HCl (Nubain) 10 mg IVPUSH Q2H PRN. PRN Reason: Pain (moderate 4-6). Ondansetron HCl (Zofran) 4 mg IVPUSH ONETIME PRN. PRN Reason: Nausea/Vomiting. Sodium Chloride (Saline Flush) 10 ml FLUSH ASDIRECTED PRN. PRN Reason: Keep Vein Open. Discontinued Medications. Ephedrine Sulfate (Ephedrine Sulfate) 50 mg .ROUTE .STK-MED ONE. Stop: 09/05/17 22:23. Ampicillin Sodium 2 gm/ Sodium (Chloride) 100 mls @ 200 mls/hr IV ONETIME ONE. Stop: 09/04/17 20:41. Last Admin: 09/04/17 21:01 Dose: 200 mls/hr. Oxytocin/Lactated Ringer's (Pitocin In Lr 10 Units/1,000 Ml ) Confirm Administered Dose 10 unit in 1,000 mls @ as directed IV .STK-MED ONE. Stop: 09/05/17 02:13. Last Admin: 09/05/17 02:50 Dose: Not Given. Misoprostol (Cytotec) 25 mcg VAG Q3HR SONA. Stop: 09/05/17 03:01. Last Admin: 09/05/17 02:50 Dose: 25 mcg. - Problem List & Annotations. (1) 41 weeks gestation of . SNOMED Code(s): 06665001. Code(s): Z3A.41 - 41 WEEKS GESTATION OF Status: Acute Current Visit: Yes. (2) GBS (group B Streptococcus carrier), +RV culture, currently . SNOMED Code(s): 3424055558700, 7994366746683. Code(s): O99.820 - STREPTOCOCCUS B CARRIER STATE COMPLICATING Status: Acute Current Visit: Yes. (3) heart rate decelerations affecting management of mother. SNOMED Code(s): 74613794. Code(s): O36.8390 - MATERN CARE FOR ABNLT FETL HRT RATE OR RHYM, UNSP TRI, UNSP Status: Acute Current Visit: Yes. (4) Nuchal cord with compression, delivered, current hospitalization. SNOMED Code(s): 669646775. Code(s): O69.1XX0 - LABOR AND DELIVERY COMP BY CORD AROUND NECK, W COMPRSN, UNSP Status : Acute Current Visit: Yes. - Problem List Review. Problem List Initiated/ Reviewed/Updated: No. - My Orders. Last 24 Hours: My Active Orders. 20:10. Patient Status [ADT] Routine. 09/04/17 20:12. Activity as Tolerated [RC] PFP. Communication Order [RC] ASDIRECTED. Notify Provider [RC] PFP. Notify Provider [RC] PRN. Vital Signs [RC] PER UNIT ROUTINE. Nalbuphine [Nubain] 10 mg IVPUSH Q2H PRN. Sodium Chloride 0.9% [Saline Flush] 10 ml FLUSH ASDIRECTED PRN. Electronic Heart Tones Ext w TOCO [WOMSER] Routine. Electronic Heart Tones Internal [WOMSER] Per Unit Routine. Peripheral IV Insertion Adult [OM.PC] Routine. Resuscitation Status Routine. 09/04/17 20:15. Peripheral IV Care [RC] . DIRECTED. Lactated Ringers [ Ringers, Lactated] 1,000 ml IV ASDIRECTED. 09/05/17 01:00. Ampicillin 1 gm Sodium Chloride 0.9% [Normal Saline] 100 ml IV Q4H. 09/05/17 01:45. Oxytocin [ Pitocin] 10 unit Lactated Ringers [Ringers, Lactated] 1,000 ml IV .ONETIME. 09/05/17 06:00. Oxytocin [Pitocin] 10 unit Lactated Ringers [Ringers, Lactated] 1,000 ml IV TITRATE. 09/05/17 10:40. Patient Status Manage Transfer [TRANSFER] Routine. - Plan. Plan:: Plan: Induction of Labor and delivery. - Discharge Data Discharge Date: 09/06/17 Discharge Disposition: Home, Self-Care 01 Condition: Good - Discharge Diagnosis/Problem(s) (1) 41 weeks gestation of SNOMED Code(s): 81662622 ICD Code: Z3A.41 - 41 WEEKS GESTATION OF Status: Acute Current Visit: Yes (2) GBS (group B Streptococcus carrier), +RV culture, currently SNOMED Code(s): 6194959054237, 1873328680970 ICD Code: O99.820 - STREPTOCOCCUS B CARRIER STATE COMPLICATING Status: Acute Current Visit: Yes (3) heart rate decelerations affecting management of mother SNOMED Code(s): 84936855 ICD Code: O36.8390 - MATERN CARE FOR ABNLT FETL HRT RATE OR RHYM, UNSP TRI, UNSP Status: Acute Current Visit: Yes (4) Nuchal cord with compression, delivered, current hospitalization SNOMED Code(s): 055890152 ICD Code: O69.1XX0 - LABOR AND DELIVERY COMP BY CORD AROUND NECK, W COMPRSN, UNSP Status: Acute Current Visit: Yes - Patient Summary/Data Complications: None Consults: None Hospital Course: Uneventful. - Patient Instructions Diet: Regular Diet as Tolerated Driving: Do Not Drive (48 hours) Showering/Bathing: May Shower, No Tub Bathing/Swimming (6 weeks) Notify Provider of: Fever, Increased Pain, Swelling and Redness, Drainage, Nausea and/or Vomiting - Discharge Plan Home Medications: Home Meds Acetaminophen [Tylenol] 650 mg PO Q4H PRN tablet 09/06/17 [Rx] Benzocaine/Menthol [Dermoplast Pain Relief [place]] 1 spray TOP ASDIRECTED PRN canister 09/06/17 [Rx] Docusate Sodium [Colace] 100 mg PO BID PRN cap 09/06/17 [Rx] Ibuprofen [IJD: Ibuprofen] 600 mg PO Q4H PRN tablet 09/06/17 [Rx] Lanolin [Lansinoh HPA] 1 applic TOP ASDIRECTED PRN tube 09/06/17 [Rx] Simethicone 80 mg PO Q4H PRN tab.chew 09/06/17 [Rx] Witch Dolly [Tucks] 1 pad TOP ASDIRECTED PRN pad 09/06/17 [Rx] Referrals: Vignesh Herron MD [Primary Care Provider] - (To see me in 2 weeks.) - Discharge Summary/Plan Comment DC Time >30 min.: No - Patient Data Vitals - Most Recent: Last Vital Signs Temp 98.1 F 09/06/17 02:04 Pulse 76 09/06/17 02:04 Resp 14 09/06/17 02:04 BP 107/72 09/06/17 02:04 Pulse Ox 98 09/06/17 02:04 Weight - Most Recent: 184 lb I&O - Last 24 hours: Intake & Output 09/06/17 09/06/17 09/06/17 06:59 14:59 22:59 Intake Total 120 Balance 120 Med Orders - Current: Current Medications Acetaminophen (Tylenol) 650 mg PO Q4H PRN PRN Reason: mild pain or fever Benzocaine/Menthol (Dermoplast Pain Relief [place]) 0 gm TOP ASDIRECTED PRN PRN Reason: Perineal Comfort Measure Docusate Sodium (Colace) 100 mg PO BID PRN PRN Reason: Constipation Emollient Ointment (Lansinoh Hpa) 0 gm TOP ASDIRECTED PRN PRN Reason: Sore Nipples Ibuprofen (Motrin) 600 mg PO Q4H PRN PRN Reason: Mild pain or fever Last Admin: 09/06/17 08:37 Dose: 600 mg Oxycodone/Acetaminophen (Percocet 325-5 Mg) 2 tab PO Q4H PRN PRN Reason: Pain (moderate 4-6) Simethicone (Simethicone) 80 mg PO Q4H PRN PRN Reason: Gas Witch Dolly (Tucks) 1 pad TOP ASDIRECTED PRN PRN Reason: Hemorrhoid pain Discontinued Medications Diphenhydramine HCl (Benadryl) 25 mg IVPUSH Q6H PRN PRN Reason: Pruritis Ephedrine Sulfate (Ephedrine Sulfate) 5 mg IVPUSH ASDIRECTED PRN PRN Reason: Hypotension Ephedrine Sulfate (Ephedrine Sulfate) 50 mg .ROUTE .STK-MED ONE Stop: 09/05/17 22:23 Fentanyl (Sublimaze) 100 mcg EPIDUR ONETIME PRN PRN Reason: Pain Last Admin: 09/05/17 05:08 Dose: 100 mcg Fentanyl/Bupivacaine HCl (Fentanyl/Bupivacaine/Ns 2 Mcg-0.125% 100 Ml) 100 ml EPIDUR ASDIRECTED [facility] Last Admin: 09/05/17 05:09 Dose: 100 ml Ampicillin Sodium 2 gm/ Sodium (Chloride) 100 mls @ 200 mls/hr IV ONETIME ONE Stop: 09/04/17 20:41 Last Admin: 09/04/17 21:01 Dose: 200 mls/hr Ampicillin Sodium 1 gm/ Sodium (Chloride) 100 mls @ 200 mls/hr IV Q4H [facility] Last Admin: 09/05/17 08:44 Dose: 200 mls/hr Lactated Ringer's (Ringers, Lactated) 1,000 mls @ 100 mls/hr IV ASDIRECTED [facility] Last Admin: 09/05/17 06:32 Dose: 100 mls/hr Oxytocin 10 unit/ Lactated (Ringer's) 1,001 mls @ 12.01 mls/hr IV TITRATE SONA; 2 MUNITS/MIN PRN Reason: Protocol Oxytocin 10 unit/ Lactated (Ringer's) 1,001 mls @ 500 mls/hr IV .ONETIME SONA PRN Reason: Protocol Oxytocin/Lactated Ringer's (Pitocin In Lr 10 Units/1,000 Ml) Confirm Administered Dose 10 unit in 1,000 mls @ as directed IV .STK-MED ONE Stop: 09/05/17 02:13 Last Admin: 09/05/17 02:50 Dose: Not Given Measles/Mumps/Rubella Vaccine Live (M-M-R Ii Vaccine) 0.5 ml SUBCUT .ONCE ONE Stop: 09/05/17 16:52 Last Admin: 09/05/17 22:12 Dose: 0.5 ml Misoprostol (Cytotec) 25 mcg VAG Q3HR SONA Stop: 09/05/17 03:01 Last Admin: 09/05/17 02:50 Dose: 25 mcg Nalbuphine HCl (Nubain) 10 mg IVPUSH Q2H PRN PRN Reason: Pain (moderate 4-6) Ondansetron HCl (Zofran) 4 mg IVPUSH ONETIME PRN PRN Reason: Nausea/Vomiting Sodium Chloride (Saline Flush) 10 ml FLUSH ASDIRECTED PRN PRN Reason: Keep Vein Open *Q Meaningful Use (DIS) - VTE *Q VTE Criteria *Q: - Stroke *Q Stroke Criteria *Q: - AMI *Q AMI Criteria *Q:
== END 2017-09-06 17:10 | disposition home or self-care (01) | DRG 775 ==
LOC: JD.OB 10:40 → OBSVTOIN 09-05 10:40
PROVIDERS: ADMIT Obstetrics & Gynecology; ATTEND Obstetrics & Gynecology
PROC: 10D07Z6 Extraction of Products of Conception, Vacuum, Via Natural or Artificial Opening (ICD-10-PCS; principal; 2017-09-05)
PROC: 3E0P7VZ Introduction of Hormone into Female Reproductive, Via Natural or Artificial Opening (ICD-10-PCS; 2017-09-05)
PROC: 3E0P3VZ Introduction of Hormone into Female Reproductive, Percutaneous Approach (ICD-10-PCS; 2017-09-05)
PROC: 00HU33Z Insertion of Infusion Device into Spinal Canal, Percutaneous Approach (ICD-10-PCS; 2017-09-05)
PROC: 3E0R3BZ Introduction of Anesthetic Agent into Spinal Canal, Percutaneous Approach (ICD-10-PCS; 2017-09-05)
PROC: 0W8NXZZ Division of Female Perineum, External Approach (ICD-10-PCS; 2017-09-05)
DX: O48.0 Post-term pregnancy (principal); Z3A.41 41 weeks gestation of pregnancy; Z37.0 Single live birth; O99.824 Streptococcus B carrier state complicating childbirth; O69.81X0 Labor and delivery complicated by cord around neck, without compression, not applicable or unspecified; O76 Abnormality in fetal heart rate and rhythm complicating labor and delivery; O70.9 Perineal laceration during delivery, unspecified
CPT/HCPCS: 36415; 51702; 59300; 59409; 85025; 85027; 86850; 86900; 86901; 90471; 90707; A9270-GY; J0290; J3010; J7030; J7120

== ENCOUNTER 2019-09-10 12:05 | Inpatient (IN) | payer MEDICAID ==
[~2019-09-10 12:05] MED LIST: Bupivacaine 0.25% 10 ML SDV ONE
[2019-09-10] MEDS ORDERED: Ondansetron 4 MG/2 ML SDV IVPUSH PRN ×2 (12:15→16:35)
[2019-09-10] MEDS ORDERED: Oxytocin/Lactated Ringers 10 UNIT/1,000 ML BAG IV SCH ×2 (12:15)
[2019-09-10] MEDS ORDERED: Nalbuphine 10 MG/1 ML Vial IVPUSH PRN (12:15)
[2019-09-10] MEDS ORDERED: Calcium Carbonate 500 MG Tab.Chew PO PRN (12:15)
[2019-09-10] MEDS ORDERED: Lidocaine 1% 50 ML MDV INJECT ONE (12:15)
[2019-09-10] MEDS ORDERED: Sodium Chloride 0.9% 10 ML Syringe FLUSH PRN (12:15)
[2019-09-10] MEDS ORDERED: Misoprostol 25 MCG (1/4 of 100 MCG) Tab VAG SCH (12:21)
[2019-09-10] MEDS ORDERED: Ampicillin 2 GM in Sodium Chloride 0.9% 100 ML IV ONE (13:00)
--- NOTE | 2019-09-10 13:01 | PCM.LDHP ---
L&D History of Present Illness - General Date of Service: 09/10/19 Admit Problem/Dx: Patient Status Order with Admit Dx/Problem 09/10/19 12:16 Patient Status [ADT] Routine Admission Diagnosis/Problem Admission Diagnosis/Problem Term Source of Information: Patient History Limitations: Reports: No Limitations - History of Present Illness Introduction:: 29-year-old 001 FCO 09/15/19 at estimated gestational age of 39 weeks and 2 days presented to labor and delivery for induction of labor. Cervix unchanged from previous exam on 09/06/19 at 1 cm dilated long, soft, posterior, vertex -2 station first 50 g Cytotec placed by RN at approximately 1250 GBS positive antibiotics have been ordered. 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 Operative performed at colposcopy. Patient will need full colposcopy with biopsies after delivery. 02/26/19 blood type B positive, antibody screen negative, hemoglobin/hematocrit 13.2/38.6 white list 325,000, rubella immune, serology nonreactive, urine culture suggest contamination. Hepatitis B surface antigen negative HIV negative GC and chlamydia probe negative Sonogram obtained on 02/15/19 at 9 weeks and 5 days no comp carrying process seen FCO 09/15/19 ultrasound and by LMP 12/07/18 FCO 09/13/19. 06/26/19 hemoglobin/hematocrit 11.9/33.7 platelets 248,000, 1 hour OB glucose screen 96 serology nonreactive 08/20/19 GBS positive Plan induction of labor and delivery. Location, : Reports: Abdomen, Lower back Severity: Mild Improves with: Reports: None Worsens with: Reports: None Associated Symptoms: Reports: N - Related Data Allergies/Adverse Reactions: Allergies Allergy/AdvReac Type Severity Reaction Status Date / Time No Known Allergies Allergy Verified 09/10/19 12:22 Home Medications: Home Meds Acetaminophen [Tylenol] 650 mg PO Q4H PRN tablet 09/06/17 [Rx] Benzocaine/Menthol [Dermoplast Pain Relief [place]] 1 spray TOP ASDIRECTED PRN canister 09/06/17 [Rx] Docusate Sodium [Colace] 100 mg PO BID PRN cap 09/06/17 [Rx] Ibuprofen [IJD: Ibuprofen] 600 mg PO Q4H PRN tablet 09/06/17 [Rx] Lanolin [Lansinoh HPA] 1 applic TOP ASDIRECTED PRN tube 09/06/17 [Rx] Simethicone 80 mg PO Q4H PRN tab.chew 09/06/17 [Rx] Ino Alberto [Tucks] 1 pad TOP ASDIRECTED PRN pad 09/06/17 [Rx] Past Medical History - Past Health History Medical/Surgical History: Denies 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: Reports: Social & Family History - Family History Family Medical History: Noncontributory - Caffeine Use Caffeine Use: Reports: None H&P Review of Systems - Review of Systems: Review Of Systems: See Below General: Reports: No Symptoms HEENT: Reports: No Symptoms Pulmonary: Reports: No Symptoms Cardiovascular: Reports: No Symptoms Gastrointestinal: Reports: No Symptoms Genitourinary: Reports: No Symptoms Musculoskeletal: Reports: No Symptoms Skin: Reports: No Symptoms Psychiatric: Reports: No Symptoms Neurological: Reports: No Symptoms Hematologic/Lymphatic: Reports: No Symptoms Immunologic: Reports: No Symptoms L&D Exam - Exam Exam: See Below - OB Specific Fundal Height In cm: 38 Contraction Duration (sec): 30 Contraction Frequency (min): 5 Contraction Intensity: Mild Movement: Active Heart Tones: Present Heart Tones per Min: 140 Heart Rate (FHR) Variability: Moderate (6-25 bmp) Presentation: Vertex - Del Cid Score Del Cid Score Cervix Position: Posterior Del Cid Score Consistency: Soft Del Cid Score Effacement: 0-30% Del Cid Score Dilation: 1-2 cm Del Cid Score Infant's Station: -2 Del Cid Score Total: 4 - Exam General: Alert, Oriented HEENT: Conjunctiva Clear, Mucosa Moist & [place] Neck: Supple, Trachea Midline Lungs: Clear to Auscultation, Normal Respiratory Effort Cardiovascular: Regular Rate, Regular Rhythm GI/Abdominal Exam: Normal Bowel Sounds, Soft, Non-Tender Genitourinary: Normal external exam Extremities: Normal Inspection, Non-Tender, No Pedal Edema, Normal Capillary Refill Skin: Warm, Dry, Intact Psychiatric: Alert, Normal Affect, Normal Mood - Patient Data Lab Results Last 24 hrs: Laboratory Results - last 24 hr 09/10/19 Range/Units 12:37 WBC 6.89 (3.98-10.04) K/mm3 RBC 3.85 L (3.98-5.22) M/mm3 Hgb 11.4 (11.2-15.7) gm/dl Hct 34.0 L (34.1-44.9) % MCV 88.3 (79.4-94.8) fl MCH 29.6 (25.6-32.2) pg MCHC 33.5 (32.2-35.5) g/dl RDW Std Deviation 40.1 (36.4-46.3) fL Plt Count 255 (182-369) K/mm3 MPV 10.6 (9.4-12.3) fl Neut % (Auto) 71.7 H (34.0-71.1) % Lymph % (Auto) 18.4 L (19.3-51.7) % [place] % (Auto) 9.3 (4.7-12.5) % Eos % (Auto) 0.4 L (0.7-5.8) Baso % (Auto) 0.1 (0.1-1.2) % Neut # (Auto) 4.93 (1.56-6.13) K/mm3 Lymph # (Auto) 1.27 (1.18-3.74) K/mm3 [place] # (Auto) 0.64 H (0.24-0.36) K/mm3 Eos # (Auto) 0.03 L (0.04-0.36) K/mm3 Baso # (Auto) 0.01 (0.01-0.08) K/mm3 Result Diagrams: 09/10/19 12:37 - Problem List (1) 39 weeks gestation of SNOMED Code(s): 85189033 ICD Code: Z3A.39 - 39 WEEKS GESTATION OF Status: Acute Current Visit: Yes (2) GBS (group B Streptococcus carrier), +RV culture, currently SNOMED Code(s): 3990936398012, 551138529, 8405706215732 ICD Code: O99.820 - STREPTOCOCCUS B CARRIER STATE COMPLICATING Status: Acute Current Visit: No Problem List Initiated/Reviewed/Updated: No Orders Last 24hrs: Active Orders 24 hr Category Date Time Status Patient Status [ADT] Routine ADT 09/10/19 12:16 Active Activity as Tolerated [RC] PFP Care 09/10/19 12:16 Active Communication Order [RC] ASDIRECTED Care 09/10/19 12:16 Active Communication Order [RC] ASDIRECTED Care 09/10/19 12:16 Active Communication Order [RC] ASDIRECTED Care 09/10/19 12:16 Active Communication Order [RC] ASDIRECTED Care 09/10/19 12:16 Active Heart Tones [RC] ASDIRECTED Care 09/10/19 12:16 Active Monitoring [RC] INTERMITTENT Care 09/10/19 12:16 Active Non Stress Test [RC] PER UNIT ROUTINE Care 09/10/19 12:16 Active Notify Provider [RC] ASDIRECTED Care 09/10/19 12:16 Active Notify Provider [RC] ASDIRECTED Care 09/10/19 12:21 Active Notify Provider [RC] PFP Care 09/10/19 12:16 Active Notify Provider [RC] PRN Care 09/10/19 12:16 Active Peripheral IV Care [RC] . DIRECTED Care 09/10/19 12:16 Active Pump Management, Intrathecal [RC] ASDIRECTED Care 09/10/19 12:17 Active Urinary Catheter Assessment [RC] ASDIRECTED Care 09/10/19 12:15 Active Vaginal Exam [RC] ASDIRECTED Care 09/10/19 12:16 Active Vital Signs [RC] PER UNIT ROUTINE Care 09/10/19 12:16 Active Regular Diet [DIET] Diet 09/10/19 Lunch Active RAPID PLASMA REAGIN,RPR [CHEM] Stat Lab 09/10/19 12:37 Received TYPE AND SCREEN [BBK] Stat Lab 09/10/19 12:37 Received Ampicillin 1 gm Med 09/10/19 17:00 Active Sodium Chloride 0.9% [Normal Saline] 100 ml IV Q4H Ampicillin 2 gm Med 09/10/19 13:00 Active Sodium Chloride 0.9% [Normal Saline] 100 ml IV ONETIME Calcium Carbonate [Tums] Med 09/10/19 12:15 Active 1,000 mg PO Q2H PRN Lactated Ringers [Ringers, Lactated] 1,000 ml Med 09/10/19 12:15 Active IV ASDIRECTED Nalbuphine [Nubain] Med 09/10/19 12:15 Active 10 mg IVPUSH Q2H PRN Ondansetron [Zofran] Med 09/10/19 12:15 Active 4 mg IVPUSH Q4H PRN Oxytocin/Lactated Ringers [Pitocin in LR 10 Units/1,000 Med 09/10/19 12:15 Active ML] 10 unit in 1,000 ml IV .CONTINUOUS Oxytocin/Lactated Ringers [Pitocin in LR 10 Units/1,000 Med 09/10/19 12:15 Active ML] 10 unit in 1,000 ml IV TITRATE Sodium Chloride 0.9% [Saline Flush] Med 09/10/19 12:15 Active 10 ml FLUSH ASDIRECTED PRN miSOPROStoL [Cytotec] Med 09/10/19 12:21 Active 50 mcg VAG Q4H Electronic Heart Tones Ext w TOCO [WOMSER] Oth 09/10/19 12:16 Ordered Routine Electronic Heart Tones Internal [WOMSER] Per Unit Ot 09/10/19 12:16 Ordered Routine Peripheral IV Insertion Adult [OM.PC] Routine Ot 09/10/19 12:16 Ordered Resuscitation Status Routine Resus Stat 09/10/19 12:15 Ordered Medication Orders Calcium Carbonate/Glycine (Tums) 1,000 mg PO Q2H PRN PRN Reason: Indigestion Ampicillin Sodium 2 gm/ Sodium (Chloride) 100 mls @ 200 mls/hr IV ONETIME ONE Stop: 09/10/19 13:29 Last Admin: 09/10/19 12:42 Dose: 200 mls/hr Ampicillin Sodium 1 gm/ Sodium (Chloride) 100 mls @ 200 mls/hr IV Q4H SONA Lactated Ringer's (Ringers, Lactated) 1,000 mls @ 100 mls/hr IV ASDIRECTED SONA Oxytocin/Lactated Ringer's (Pitocin In Lr 10 Units/1,000 Ml) 10 unit in 1,000 mls @ 12 mls/hr IV TITRATE SONA; Protocol Oxytocin/Lactated Ringer's (Pitocin In Lr 10 Units/1,000 Ml) 10 unit in 1,000 mls @ 500 mls/hr IV .CONTINUOUS SONA Misoprostol (Cytotec) 50 mcg VAG Q4H SONA Stop: 09/10/19 20:22 Last Admin: 09/10/19 12:41 Dose: 50 mcg Nalbuphine HCl (Nubain) 10 mg IVPUSH Q2H PRN PRN Reason: Pain Ondansetron HCl (Zofran) 4 mg IVPUSH Q4H PRN PRN Reason: Nausea/Vomiting Sodium Chloride (Saline Flush) 10 ml FLUSH ASDIRECTED PRN PRN Reason: Keep Vein Open Assessment/Plan Comment:: Plan induction and delivery.
--- NOTE | 2019-09-10 13:43 | PCM.PREANE ---
Preanesthetic Assessment - Procedure Proposed Procedure: RERE - Anesthesia/Transfusion/Family Hx Anesthesia History: No Prior Anesthesia Family History of Anesthesia Reaction: No Transfusion History: No Prior Transfusion(s) Intubation History: Unknown - Review of Systems General: No Symptoms Pulmonary: No Symptoms Cardiovascular: No Symptoms Gastrointestinal: No Symptoms Neurological: No Symptoms Other: Reports: None - Physical Assessment NPO Status Date: 09/10/19 NPO Status Time: 13:45 Vital Signs: Last Vital Signs Temp 37.2 C 09/10/19 12:16 Pulse 74 09/10/19 12:16 Resp 16 09/10/19 12:16 BP 117/64 09/10/19 12:16 Pulse Ox 98 09/10/19 12:16 Height: 1.73 m Weight: 78.018 kg ASA Class: 2 Mental Status: Alert & Oriented x3 Thyro-Mental Finger Breadths: 3 Mouth Opening Finger Breadths: 5 ROM/Head Extension: Full Lungs: Clear to Auscultation, Normal Respiratory Effort Cardiovascular: Regular Rate, Regular Rhythm - Lab Values: Laboratory Last Values WBC 6.89 K/mm3 (3.98-10.04) 09/10/19 12:37 RBC 3.85 M/mm3 (3.98-5.22) L 09/10/19 12:37 Hgb 11.4 gm/dl (11.2-15.7) 09/10/19 12:37 Hct 34.0 % (34.1-44.9) L 09/10/19 12:37 MCV 88.3 fl (79.4-94.8) 09/10/19 12:37 MCH 29.6 pg (25.6-32.2) 09/10/19 12:37 MCHC 33.5 g/dl (32.2-35.5) 09/10/19 12:37 RDW Std Deviation 40.1 fL (36.4-46.3) 09/10/19 12:37 Plt Count 255 K/mm3 (182-369) 09/10/19 12:37 MPV 10.6 fl (9.4-12.3) 09/10/19 12:37 Neut % (Auto) 71.7 % (34.0-71.1) H 09/10/19 12:37 Lymph % (Auto) 18.4 % (19.3-51.7) L 09/10/19 12:37 [place] % (Auto) 9.3 % (4.7-12.5) 09/10/19 12:37 Eos % (Auto) 0.4 (0.7-5.8) L 09/10/19 12:37 Baso % (Auto) 0.1 % (0.1-1.2) 09/10/19 12:37 Neut # (Auto) 4.93 K/mm3 (1.56-6.13) 09/10/19 12:37 Lymph # (Auto) 1.27 K/mm3 (1.18-3.74) 09/10/19 12:37 [place] # (Auto) 0.64 K/mm3 (0.24-0.36) H 09/10/19 12:37 Eos # (Auto) 0.03 K/mm3 (0.04-0.36) L 09/10/19 12:37 Baso # (Auto) 0.01 K/mm3 (0.01-0.08) 09/10/19 12:37 Blood Type B POSITIVE 09/10/19 12:37 Gel Antibody Screen Negative 09/10/19 12:37 - Allergies Allergies/Adverse Reactions: Allergies Allergy/AdvReac Type Severity Reaction Status Date / Time No Known Allergies Allergy Verified 09/10/19 12:22 - Blood Blood Available: No - Anesthesia Plan Pre-Op Medication Ordered: None - Acknowledgements Anesthesia Type Planned: Epidural Pt an Appropriate Candidate for the Planned Anesthesia: Yes Alternatives and Risks of Anesthesia Discussed w Pt/Guardian: Yes Pt/Guardian Understands and Agrees with Anesthesia Plan: Yes PreAnesthesia Questionnaire - Past Health History Medical/Surgical History: Denies 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: - HOME MEDS Home Medications: Home Meds Acetaminophen [Tylenol] 650 mg PO Q4H PRN tablet 09/06/17 [Rx] Benzocaine/Menthol [Dermoplast Pain Relief [place]] 1 spray TOP ASDIRECTED PRN canister 09/06/17 [Rx] Docusate Sodium [Colace] 100 mg PO BID PRN cap 09/06/17 [Rx] Ibuprofen [IJD: Ibuprofen] 600 mg PO Q4H PRN tablet 09/06/17 [Rx] Lanolin [Lansinoh HPA] 1 applic TOP ASDIRECTED PRN tube 09/06/17 [Rx] Simethicone 80 mg PO Q4H PRN tab.chew 09/06/17 [Rx] Ino Alberto [Tucks] 1 pad TOP ASDIRECTED PRN pad 09/06/17 [Rx] - CURRENT (IN HOUSE) MEDS Current Meds: Current Medications Calcium Carbonate/Glycine (Tums) 1,000 mg PO Q2H PRN PRN Reason: Indigestion Ampicillin Sodium 1 gm/ Sodium (Chloride) 100 mls @ 200 mls/hr IV Q4H SONA Lactated Ringer's (Ringers, Lactated) 1,000 mls @ 100 mls/hr IV ASDIRECTED SONA Oxytocin/Lactated Ringer's (Pitocin In Lr 10 Units/1,000 Ml) 10 unit in 1,000 mls @ 12 mls/hr IV TITRATE SONA; Protocol Oxytocin/Lactated Ringer's (Pitocin In Lr 10 Units/1,000 Ml) 10 unit in 1,000 mls @ 500 mls/hr IV .CONTINUOUS SONA Misoprostol (Cytotec) 50 mcg VAG Q4H SONA Stop: 09/10/19 20:22 Last Admin: 09/10/19 12:41 Dose: 50 mcg Nalbuphine HCl (Nubain) 10 mg IVPUSH Q2H PRN PRN Reason: Pain Ondansetron HCl (Zofran) 4 mg IVPUSH Q4H PRN PRN Reason: Nausea/Vomiting Sodium Chloride (Saline Flush) 10 ml FLUSH ASDIRECTED PRN PRN Reason: Keep Vein Open Discontinued Medications Ampicillin Sodium 2 gm/ Sodium (Chloride) 100 mls @ 200 mls/hr IV ONETIME ONE Stop: 09/10/19 13:29 Last Admin: 09/10/19 12:42 Dose: 200 mls/hr Lidocaine HCl (Xylocaine 1%) 20 ml INJECT ONETIME ONE Stop: 09/10/19 12:16
--- NOTE | 2019-09-10 15:58 | PCM.SN ---
- Free Text/Narrative Note: Cervix 1 cm, long, soft, posterior, vertex-1 station. Contraction frequency increasing. Will reduce Cytotec to 25 mcg at 1700, 2100, 0100 09/11/2019 and then begin Pitocin at 0500 in AM. Cat I FHR
[2019-09-10] MEDS ORDERED: ePHEDrine 50 MG/ML SDV IVPUSH PRN (16:35)
[2019-09-10] MEDS ORDERED: fentaNYL/Bupivacaine/NS 2 MCG-0.125% 250 ML EPIDUR PRN (16:35)
[2019-09-10] MEDS ORDERED: fentaNYL 100 MCG/2 ML SDV EPIDUR PRN (16:35)
[2019-09-10] MEDS: Ampicillin 1 GM in Sodium Chloride 0.9% 100 ML IV SCH ×2 (16:54→21:24)
[2019-09-10] MEDS: Misoprostol 25 MCG (1/4 of 100 MCG) Tab VAG SCH (17:50)
[2019-09-10] MEDS: Lactated Ringers 1,000 ML IV SCH ×2 (19:20→20:52)
--- NOTE | 2019-09-10 19:36 | PCM.SN ---
- Free Text/Narrative Note: Amniotomy at 1916 hrs clear fluid, cervix 2 cm, 70%, soft, posterior, vertex zero station, cat I FHT's before and after amniotomy. Will get epidural soon.
--- NOTE | 2019-09-10 23:05 | PCM.DEL ---
L & D Note - General Info Date of Service: 09/10/19 Mother's Due Date: 09/15/19 - Delivery Note Labor: Augmented by ARM Cervical Ripening Method: Misoprostil (50 mcg x1) Delivery Outcome: Livebirth (Female liveborn Tuesday09/10/2019 2239 hrs DILMA 3980g/8#12.4 oz APGARs 8/9) Infant Delivery Method: Spontaneous Vaginal Delivery-Single Infant Delivery Mode: Spontaneous Presentation: Left Occiput Anterior (DILMA) Nuchal Cord: None Prep: Povidone-Iodine (Betadine Anesthesia Type: Epidural Amniotic Fluid Description: Clear Episiotomy Type: None Laceration: 1st Degree (Midline), Periurethral (Right degree) Suture type: Other (Monocryl) Suture size: 3-0 Placenta: Intact, Spontaneous (Tuesday09/10/19 2242 hrs. started after examination) Cord: 3 Vessels Estimated Blood Loss: 250 Resuscitation Needed: No : Suctioned, Bulb Syringe, Stimulated, Warmed, [place] Used, Warmer Used Provider: Vignesh Herron Score 1 min: 8 Score 5 min: 9 - General Info Date of Service: 09/10/19 Functional Status: Reports: Pain Controlled - Review of Systems General: Reports: No Symptoms HEENT: Reports: No Symptoms Pulmonary: Reports: No Symptoms Cardiovascular: Reports: No Symptoms Gastrointestinal: Reports: No Symptoms Genitourinary: Reports: No Symptoms Musculoskeletal: Reports: No Symptoms Skin: Reports: No Symptoms Neurological: Reports: No Symptoms Psychiatric: Reports: No Symptoms - Patient Data Vitals - Most Recent: Last Vital Signs Temp 98.9 F 09/10/19 12:16 Pulse 74 09/10/19 12:16 Resp 16 09/10/19 12:16 BP 117/64 09/10/19 12:16 Pulse Ox 98 09/10/19 12:16 Weight - Most Recent: 172 lb I&O - Last 24 Hours: Intake & Output 09/10/19 09/10/19 09/11/19 14:59 22:59 06:59 Intake Total 100 220 Balance 100 220 Lab Results Last 24 Hours: Laboratory Results - last 24 hr 09/10/19 09/10/19 09/10/19 Range/Units 12:37 12:37 12:37 WBC 6.89 (3.98-10.04) K/mm3 RBC 3.85 L (3.98-5.22) M/mm3 Hgb 11.4 (11.2-15.7) gm/dl Hct 34.0 L (34.1-44.9) % MCV 88.3 (79.4-94.8) fl MCH 29.6 (25.6-32.2) pg MCHC 33.5 (32.2-35.5) g/dl RDW Std Deviation 40.1 (36.4-46.3) fL Plt Count 255 (182-369) K/mm3 MPV 10.6 (9.4-12.3) fl Neut % (Auto) 71.7 H (34.0-71.1) % Lymph % (Auto) 18.4 L (19.3-51.7) % [place] % (Auto) 9.3 (4.7-12.5) % Eos % (Auto) 0.4 L (0.7-5.8) Baso % (Auto) 0.1 (0.1-1.2) % Neut # (Auto) 4.93 (1.56-6.13) K/mm3 Lymph # (Auto) 1.27 (1.18-3.74) K/mm3 [place] # (Auto) 0.64 H (0.24-0.36) K/mm3 Eos # (Auto) 0.03 L (0.04-0.36) K/mm3 Baso # (Auto) 0.01 (0.01-0.08) K/mm3 RPR Non-reactive (NONREACTIVE) Blood Type B POSITIVE Gel Antibody Screen Negative Med Orders - Current: Current Medications Calcium Carbonate/Glycine (Tums) 1,000 mg PO Q2H PRN PRN Reason: Indigestion Ephedrine Sulfate (Ephedrine Sulfate) 5 mg IVPUSH ASDIRECTED PRN PRN Reason: Hypotension Fentanyl (Sublimaze) 100 mcg EPIDUR Q3H PRN PRN Reason: Pain Last Admin: 09/10/19 19:57 Dose: 100 mcg Fentanyl/Bupivacaine HCl (Fentanyl/Bupivacaine/Ns 2 Mcg-0.125% 250 Ml) 250 ml EPIDUR CONTINUOUS PRN PRN Reason: Pain Last Admin: 09/10/19 19:57 Dose: 250 ml Ampicillin Sodium 1 gm/ Sodium (Chloride) 100 mls @ 200 mls/hr IV Q4H SONA Last Admin: 09/10/19 21:24 Dose: 200 mls/hr Lactated Ringer's (Ringers, Lactated) 1,000 mls @ 100 mls/hr IV ASDIRECTED SONA Last Admin: 09/10/19 20:52 Dose: 100 mls/hr Oxytocin/Lactated Ringer's (Pitocin In Lr 10 Units/1,000 Ml) 10 unit in 1,000 mls @ 12 mls/hr IV TITRATE SONA; Protocol Oxytocin/Lactated Ringer's (Pitocin In Lr 10 Units/1,000 Ml) 10 unit in 1,000 mls @ 500 mls/hr IV .CONTINUOUS [facility] Misoprostol (Cytotec) 25 mcg VAG Q4HR SONA Stop: 09/11/19 01:01 Last Admin: 09/10/19 17:50 Dose: Not Given Nalbuphine HCl (Nubain) 10 mg IVPUSH Q2H PRN PRN Reason: Pain Ondansetron HCl (Zofran) 4 mg IVPUSH Q4H PRN PRN Reason: Nausea/Vomiting Ondansetron HCl (Zofran) 4 mg IVPUSH ONETIME PRN PRN Reason: Nausea/Vomiting Sodium Chloride (Saline Flush) 10 ml FLUSH ASDIRECTED PRN PRN Reason: Keep Vein Open Discontinued Medications Ampicillin Sodium 2 gm/ Sodium (Chloride) 100 mls @ 200 mls/hr IV ONETIME ONE Stop: 09/10/19 13:29 Last Admin: 09/10/19 12:42 Dose: 200 mls/hr Lidocaine HCl (Xylocaine 1%) 20 ml INJECT ONETIME ONE Stop: 09/10/19 12:16 Misoprostol (Cytotec) 50 mcg VAG Q4H SONA Stop: 09/10/19 20:22 Last Admin: 09/10/19 12:41 Dose: 50 mcg - Exam General: Alert, Oriented HEENT: Pupils Equal, Mucous Membr. Moist/[place] Neck: Supple Lungs: Clear to Auscultation, Normal Respiratory Effort Cardiovascular: Regular Rate, Regular Rhythm GI/Abdominal Exam: Normal Bowel Sounds, Soft, Non-Tender Extremities: Normal Inspection, Normal Range of Motion, Non-Tender, No Pedal Edema, Normal Capillary Refill Skin: Warm, Dry, Intact Psy/Mental Status: Alert, Normal Affect, Normal Mood - Problem List & Annotations (1) 39 weeks gestation of SNOMED Code(s): 29748431 Code(s): Z3A.39 - 39 WEEKS GESTATION OF Status: Acute Current Visit: Yes (2) GBS (group B Streptococcus carrier), +RV culture, currently SNOMED Code(s): 7983363838660, 095602085, 5060375320717 Code(s): O99.820 - STREPTOCOCCUS B CARRIER STATE COMPLICATING Status: Acute Current Visit: No (3) Born by normal vaginal delivery SNOMED Code(s): 972336533 Code(s): O80 - ENCOUNTER FOR FULL-TERM UNCOMPLICATED DELIVERY Status: Acute Current Visit: Yes (4) Periurethral laceration, delivered, current hospitalization SNOMED Code(s): 192780445, 622533424 Code(s): O71.82 - OTHER SPECIFIED TRAUMA TO PERINEUM AND VULVA Status: Acute Current Visit: Yes (5) First degree perineal laceration during delivery SNOMED Code(s): 634740131 Code(s): O70.0 - FIRST DEGREE PERINEAL LACERATION DURING DELIVERY Status: Acute Current Visit: Yes - Problem List Review Problem List Initiated/Reviewed/Updated: No - My Orders Last 24 Hours: My Active Orders 09/10/19 12:15 Urinary Catheter Assessment [RC] ASDIRECTED Calcium Carbonate [Tums] 1,000 mg PO Q2H PRN Lactated Ringers [Ringers, Lactated] 1,000 ml IV ASDIRECTED Nalbuphine [Nubain] 10 mg IVPUSH Q2H PRN Ondansetron [Zofran] 4 mg IVPUSH Q4H PRN Oxytocin/Lactated Ringers [Pitocin in LR 10 Units/1,000 ML] 10 unit in 1,000 ml IV .CONTINUOUS Oxytocin/Lactated Ringers [Pitocin in LR 10 Units/1,000 ML] 10 unit in 1,000 ml IV TITRATE Sodium Chloride 0.9% [Saline Flush] 10 ml FLUSH ASDIRECTED PRN Resuscitation Status Routine 09/10/19 12:16 Patient Status [ADT] Routine Activity as Tolerated [RC] PFP Communication Order [RC] ASDIRECTED Communication Order [RC] ASDIRECTED Communication Order [RC] ASDIRECTED Communication Order [RC] ASDIRECTED Monitoring [RC] INTERMITTENT Notify Provider [RC] ASDIRECTED Notify Provider [RC] PFP Notify Provider [RC] PRN Peripheral IV Care [RC] Q2HR Electronic Heart Tones Ext w TOCO [WOMSER] Routine Electronic Heart Tones Internal [WOMSER] Per Unit Routine Peripheral IV Insertion Adult [OM.PC] Routine 09/10/19 12:17 Pump Management, Intrathecal [RC] ASDIRECTED 09/10/19 12:21 Notify Provider [RC] ASDIRECTED 09/10/19 17:00 Ampicillin 1 gm Sodium Chloride 0.9% [Normal Saline] 100 ml IV Q4H miSOPROStoL [Cytotec] 25 mcg VAG Q4HR 09/10/19 Lunch Regular Diet [DIET] - Assessment Assessment:: Spontaneous vaginal delivery - Plan Plan:: Plan induction and delivery.
[2019-09-10] MEDS ORDERED: Oxytocin/Lactated Ringers 20 UNIT/1,000 ML BAG IV SCH (23:15)
[2019-09-10] MEDS ORDERED: Witch Hazel Medicated Pads 40/Jar TOP PRN (23:18)
[2019-09-10] MEDS ORDERED: Benzocaine/Menthol 20%-0.5% Spray 56 GM Canister TOP PRN (23:18)
[2019-09-10] MEDS ORDERED: Docusate Sodium 100 MG Cap PO PRN (23:18)
[2019-09-10] MEDS ORDERED: Acetaminophen 325 MG Tab PO PRN (23:18)
[2019-09-11] MEDS: Ibuprofen 600 MG Tab PO PRN ×5 (00:11→22:34)
--- NOTE | 2019-09-11 08:25 | PCM48HPAN ---
Post Anesthesia Note - EVALUATION WITHIN 48HRS OF ANESTHETIC Vital Signs in Normal Range: Yes Patient Participated in Evaluation: Yes Respiratory Function Stable: Yes Airway Patent: Yes Cardiovascular Function Stable: Yes Hydration Status Stable: Yes Pain Control Satisfactory: Yes Nausea and Vomiting Control Satisfactory: Yes Mental Status Recovered: Yes Vital Signs: Last Vital Signs Temp 99.0 F 09/11/19 03:27 Pulse 55 L 09/11/19 03:27 Resp 15 09/11/19 03:27 BP 103/55 L 09/11/19 03:27 Pulse Ox 98 09/11/19 03:27
[2019-09-11] MEDS: Misoprostol 25 MCG (1/4 of 100 MCG) Tab VAG SCH (09:30)
--- NOTE | 2019-09-11 09:33 | PCM.SN ---
- Free Text/Narrative Note: PPD#1 Afebrile, doing well, uterus involuting normally no leg cramps, no heavy vaginal bleeding. Home tomorrow probably. Dr Cintron flat ironer.
--- NOTE | 2019-09-12 05:11 | PCM.DCSUM1 ---
Discharge Summary - Discharge Data Discharge Date: 09/12/19 Discharge Disposition: Home, Self-Care 01 Condition: Good - Referral to Home Health Primary Care Physician: Vignesh Herron MD - Patient Summary/Data Complications: None Consults: None Recommended Follow-up Testing/Procedures: Follow up in 2-3 weeks for check Hospital Course: 29 y/o at 39 2/7 wks presented for IOL. This was uncomplicated. Patient underwent . See delivery note for full details. she did well and was discharged home on PPD#2 - Patient Instructions Diet: Regular Diet as Tolerated Activity: As Tolerated Activity, Other: Pelvic rest for 6 weeks Driving: May Drive Today Showering/Bathing: May Shower Showering/Bathing, Other: May Bathe Notify Provider of: Fever, Increased Pain, Swelling and Redness, Drainage, Nausea and/or Vomiting - Discharge Plan *PRESCRIPTION DRUG MONITORING PROGRAM REVIEWED*: Not Applicable *COPY OF PRESCRIPTION DRUG MONITORING REPORT IN PATIENT GERTRUDE: Not Applicable Home Medications: Home Meds No122/Iron/Folic Acid [ Multi Tablet] 1 each PO DAILY 09/10/19 [History] Acetaminophen [Tylenol] 650 mg PO Q4H PRN tablet 09/11/19 [Rx] Ibuprofen [Motrin] 600 mg PO Q4H PRN tablet 09/11/19 [Rx] Patient Handouts: Home Care Instructions for Mom Referrals: iVgnesh Herron MD [Primary Care Provider] - (2 weeks for check) - Discharge Summary/Plan Comment DC Time >30 min.: No - Patient Data Vitals - Most Recent: Last Vital Signs Temp 36.9 C 09/11/19 20:00 Pulse 56 L 09/11/19 19:47 Resp 14 09/11/19 19:47 BP 105/57 L 09/11/19 19:47 Pulse Ox 100 09/11/19 19:47 Weight - Most Recent: 78.018 kg Lab Results - Last 24 hrs: Laboratory Results - last 24 hr 09/11/19 Range/Units 05:42 WBC 13.04 H (3.98-10.04) K/mm3 RBC 3.89 L (3.98-5.22) M/mm3 Hgb 11.6 (11.2-15.7) gm/dl Hct 34.5 (34.1-44.9) % MCV 88.7 (79.4-94.8) fl MCH 29.8 (25.6-32.2) pg MCHC 33.6 (32.2-35.5) g/dl RDW Std Deviation 40.1 (36.4-46.3) fL Plt Count 236 (182-369) K/mm3 MPV 11.1 (9.4-12.3) fl Neut % (Auto) 79.2 H (34.0-71.1) % Lymph % (Auto) 10.9 L (19.3-51.7) % [place] % (Auto) 9.5 (4.7-12.5) % Eos % (Auto) 0.2 L (0.7-5.8) Baso % (Auto) 0.0 L (0.1-1.2) % Neut # (Auto) 10.33 H (1.56-6.13) K/mm3 Lymph # (Auto) 1.42 (1.18-3.74) K/mm3 [place] # (Auto) 1.24 H (0.24-0.36) K/mm3 Eos # (Auto) 0.02 L (0.04-0.36) K/mm3 Baso # (Auto) 0.00 L (0.01-0.08) K/mm3 Med Orders - Current: Current Medications Acetaminophen (Tylenol) 650 mg PO Q4H PRN PRN Reason: mild pain or fever Benzocaine/Menthol (Dermoplast Pain Relief [place]) 0 gm TOP ASDIRECTED PRN PRN Reason: Perineal Comfort Measure Last Admin: 09/11/19 00:10 Dose: 1 applic Docusate Sodium (Colace) 100 mg PO BID PRN PRN Reason: Constipation Oxytocin/Lactated Ringer's (Pitocin In Lr 20 Units/1,000 Ml) 20 unit in 1,000 mls @ 1,500 mls/hr IV ASDIRECTED SONA; Protocol Last Admin: 09/11/19 00:09 Dose: 500 munits/min, 1,500 mls/hr Ibuprofen (Motrin) 600 mg PO Q4H PRN PRN Reason: Mild pain or fever Last Admin: 09/11/19 22:34 Dose: 600 mg Witch Dolly (Tucks) 1 pad TOP ASDIRECTED PRN PRN Reason: Perineal Comfort Measure Last Admin: 09/11/19 00:10 Dose: 1 tub Discontinued Medications Bupivacaine HCl (Sensorcaine-Mpf 0.25%) 10 ml .ROUTE .STK-MED ONE Stop: 09/10/19 00:01 Calcium Carbonate/Glycine (Tums) 1,000 mg PO Q2H PRN PRN Reason: Indigestion Ephedrine Sulfate (Ephedrine Sulfate) 5 mg IVPUSH ASDIRECTED PRN PRN Reason: Hypotension Fentanyl (Sublimaze) 100 mcg EPIDUR Q3H PRN PRN Reason: Pain Last Admin: 09/10/19 19:57 Dose: 100 mcg Fentanyl/Bupivacaine HCl (Fentanyl/Bupivacaine/Ns 2 Mcg-0.125% 250 Ml) 250 ml EPIDUR CONTINUOUS PRN PRN Reason: Pain Last Admin: 09/10/19 19:57 Dose: 250 ml Ampicillin Sodium 2 gm/ Sodium (Chloride) 100 mls @ 200 mls/hr IV ONETIME ONE Stop: 09/10/19 13:29 Last Admin: 09/10/19 12:42 Dose: 200 mls/hr Ampicillin Sodium 1 gm/ Sodium (Chloride) 100 mls @ 200 mls/hr IV Q4H COUNTS INCLUDE 234 BEDS AT THE [facility] Last Admin: 09/10/19 21:24 Dose: 200 mls/hr Lactated Ringer's (Ringers, Lactated) 1,000 mls @ 100 mls/hr IV ASDIRECTED SONA Last Admin: 09/10/19 20:52 Dose: 100 mls/hr Oxytocin/Lactated Ringer's (Pitocin In Lr 10 Units/1,000 Ml) 10 unit in 1,000 mls @ 12 mls/hr IV TITRATE SONA; Protocol Oxytocin/Lactated Ringer's (Pitocin In Lr 10 Units/1,000 Ml) 10 unit in 1,000 mls @ 500 mls/hr IV .CONTINUOUS COUNTS INCLUDE 234 BEDS AT THE [facility] Lidocaine HCl (Xylocaine 1%) 20 ml INJECT ONETIME ONE Stop: 09/10/19 12:16 Last Admin: 09/11/19 09:27 Dose: Not Given Misoprostol (Cytotec) 50 mcg VAG Q4H SONA Stop: 09/10/19 20:22 Last Admin: 09/10/19 12:41 Dose: 50 mcg Misoprostol (Cytotec) 25 mcg VAG Q4HR SONA Stop: 09/11/19 01:01 Last Admin: 09/11/19 09:30 Dose: Not Given Nalbuphine HCl (Nubain) 10 mg IVPUSH Q2H PRN PRN Reason: Pain Ondansetron HCl (Zofran) 4 mg IVPUSH Q4H PRN PRN Reason: Nausea/Vomiting Ondansetron HCl (Zofran) 4 mg IVPUSH ONETIME PRN PRN Reason: Nausea/Vomiting Sodium Chloride (Saline Flush) 10 ml FLUSH ASDIRECTED PRN PRN Reason: Keep Vein Open
== END 2019-09-12 07:45 | disposition home or self-care (01) | DRG 807 ==
LOC: JD.OB 12:05 → UNDOADMOB 12:05 → JD.OB 22:39 → OBSVTOIN 23:10 → INTOOBSV 23:10 → JD.OB 23:11 → UNDODISIN 09-12 07:45 → EDSTATUS 09-17 17:16
PROVIDERS: ADMIT Obstetrics & Gynecology; ATTEND Obstetrics & Gynecology
PROC: 10E0XZZ Delivery of Products of Conception, External Approach (ICD-10-PCS; principal; 2019-09-10)
PROC: 10907ZC Drainage of Amniotic Fluid, Therapeutic from Products of Conception, Via Natural or Artificial Opening (ICD-10-PCS; 2019-09-10)
PROC: 3E0P7VZ Introduction of Hormone into Female Reproductive, Via Natural or Artificial Opening (ICD-10-PCS; 2019-09-10)
PROC: 0HQ9XZZ Repair Perineum Skin, External Approach (ICD-10-PCS; 2019-09-10)
PROC: 0UQMXZZ Repair Vulva, External Approach (ICD-10-PCS; 2019-09-10)
DX: O99.824 Streptococcus B carrier state complicating childbirth (principal); Z37.0 Single live birth; Z3A.39 39 weeks gestation of pregnancy; O70.0 First degree perineal laceration during delivery; O71.82 Other specified trauma to perineum and vulva
CPT/HCPCS: 36415; 51702; 59025; 59409; 85025; 86592; 86850; 86900; 86901; A9270-GY; J0290; J2590; J3010; J3490; J7050; J7120